=== PATIENT | male | born 1985 ===

== ENCOUNTER 2024-11-17 12:29 | Emergency (ER) | payer SELFPAY ==
[2024-11-17 13:17] LABS: BASOPHILS ABSOLUTE AUTO 0.07 K/uL (0.00-0.20); BASOPHILS PERCENT AUTO 0.5 % (0.0-1.0); EOSINOPHILS ABSOLUTE AUTO 0.22 K/uL (0.00-0.45); EOSINOPHILS PERCENT AUTO 1.6 % (0.0-6.0); HEMATOCRIT 43.8 % (42.0-52.0); HEMOGLOBIN 15.5 g/dL (14.0-18.0); IMMATURE GRAN ABSOLUTE AUTO 0.05 K/uL (0.00-0.05); IMMATURE GRAN PERCENT AUTO 0.4 % (0.0-0.4); LYMPHOCYTES PERCENT AUTO 15.3 % (24.0-44.0); MEAN CORPUSCULAR HGB CONC 35.4 g/dL (32.0-36.0); MEAN CORPUSCULAR VOLUME 84.7 fL (83.0-99.0); MEAN PLATELET VOLUME 9.5 fL (9.4-12.4); MONOCYTES ABSOLUTE AUTO 1.57 K/uL (0.00-0.80); MONOCYTES PERCENT AUTO 11.4 % (0.0-8.0); NEUTROPHILS ABSOLUTE AUTO 9.73 K/uL (1.80-7.70); NEUTROPHILS PERCENT AUTO 70.8 % (41.0-71.0); PLATELET COUNT,PLT 340 K/uL (150-400); RED BLOOD CELL COUNT 5.17 M/uL (4.52-5.90); WHITE BLOOD CELL COUNT,WBC 13.74 K/uL (3.9-11.3)
[2024-11-17] MEDS: Iopamidol 755 MG/ML 500 ML Multipack Bottle IVPUSH STA (13:27)
[2024-11-17] MEDS: Ketorolac 30 MG/ML SDV IVPUSH ONE (13:29)
[2024-11-17] MEDS: Sodium Chloride 0.9% 1,000 ML IV ONE (13:29)
[2024-11-17] MEDS: Alum Hydrox/Mag Hydrox/Simeth 15 ML, Lidocaine 2% 5 ML PO ONE (13:29)
[2024-11-17 13:37] LABS: A/G RATIO 0.6 (0.9-1.6); ALBUMIN 3.5 g/dL (3.4-5.0); BILIRUBIN TOTAL 0.7 mg/dL (0.2-1.0); CALCIUM 9.8 mg/dL (8.5-10.1); CARBON DIOXIDE,CO2 32.3 mmol/L (21.0-32.0); CREATININE 1.2 mg/dL (0.8-1.3); EST CRCL DRUG DOSING (CG) 77.27 mL/min; MAGNESIUM 2.3 mg/dL (1.8-2.4); POTASSIUM,K 4.2 mmol/L (3.5-5.1); PROTEIN TOTAL,TP 9.3 g/dL (6.4-8.2)
[2024-11-17 13:42] LABS: LACTIC ACID 1.1 mmol/L (0.4-2.0)
[2024-11-17] MEDS: cefTRIAXone 2 GM in Water For Injection, Sterile 20 ML IVPUSH ONE (14:06)
[2024-11-17] MEDS: Benzocaine 20% Topical Spray UD MUCMEM ONE (14:06)
[2024-11-17] MEDS: Ondansetron 4 MG/2 ML SDV IVPUSH ONE (14:27)
== END 2024-11-17 15:19 | disposition home or self-care (01) ==
LOC: MW.ED 12:29 → MERGE 12:29 → MW.ED 15:19
DX: J36 Peritonsillar abscess (principal); F17.210 Nicotine dependence, cigarettes, uncomplicated; Z75.3 Unavailability and inaccessibility of health-care facilities
CPT/HCPCS: 36415; 70491; 80053; 83605; 83690; 83735; 85025; 87070; 87651; 96361; 96374; 96375; 99284; A9270; J0696; J1100; J1885; J2405; J7030; Q9967; 99283